=== PATIENT | female | born 1965 | race Caucasian/White ===

== ENCOUNTER 2024-06-27 06:29 | Emergency (ER) | payer BC ==
[2024-06-27 06:42] VITALS: BP 133/78; PULSE 94; RESP 20; TEMP 97.9; BMI 19.5
[2024-06-27 08:40] LABS: EOS % 1.1 % (0-4.5); HEMATOCRIT 42.5 % (32.4-45.2); HEMOGLOBIN 14.2 GM/dL (10.7-15.3); LYMPH % 15.9 % (8-40); MCH 30.4 pg (25.7-33.7); MCHC 33.5 g/dl (32.0-36.0); MEAN CELL VOLUME 90.7 fl (80-96); MEAN PLT VOLUME 6.9 fl (7.5-11.1); MONO % 5.7 % (3.8-10.2); NEUT % 76.3 % (42.8-82.8); PLATELET COUNT 363 10^3/uL (134-434); RBC 4.69 M/mm3 (3.60-5.2); RDW 13.9 % (11.6-15.6); WHITE BLOOD COUNT 11.3 K/mm3 (4.0-10.0)
[2024-06-27] MEDS ORDERED: KETOROLAC TROMETHAMINE 15 MG/ML VIAL ONE ×2 (08:50→11:43)
[2024-06-27 08:53] LABS: POTASSIUM 4.3 mmol/L (3.5-5.1)
[2024-06-27] MEDS: KETOROLAC TROMETHAMINE 15 MG/ML VIAL IVPUSH ONE (08:53)
[2024-06-27 08:55] LABS: ACTIVATED PTT 35.7 SECONDS (25.2-36.5); INR 0.92 (0.83-1.09); PROTHROMBIN TIME (PATIENT) 10.4 SEC (9.7-13.0)
[2024-06-27 08:56] LABS: ALBUMIN 3.9 g/dl (3.4-5.0); BLOOD UREA NITROGEN 10.5 mg/dL (7-18); CALCIUM 9.4 mg/dL (8.5-10.1); MAGNESIUM 2.2 mg/dL (1.8-2.4)
[2024-06-27 08:59] LABS: CREATININE 0.8 mg/dL (0.55-1.3)
[2024-06-27 09:01] LABS: BILIRUBIN,TOTAL 0.3 mg/dL (0.2-1); TOT PROT 7.1 g/dl (6.4-8.2)
[2024-06-27] MEDS ORDERED: ACETAMINOPHEN INJECTION 100 ML ONE (11:43)
[2024-06-27] MEDS: ACETAMINOPHEN 1000 MG/100 ML BAG IVPB ONE (11:47)
[2024-06-27] MEDS: KETOROLAC TROMETHAMINE 30 MG/1 ML VIAL IVPUSH ONE (11:47)
== END 2024-06-27 14:45 | disposition home or self-care (01) ==
LOC: JER 06:29
PROC: 3E033NZ Introduction of Analgesics, Hypnotics, Sedatives into Peripheral Vein, Percutaneous Approach (ICD-10-PCS; principal; 2024-06-27)
PROC: 3E0333Z Introduction of Anti-inflammatory into Peripheral Vein, Percutaneous Approach (ICD-10-PCS; 2024-06-27)
PROC: 3E0333Z Introduction of Anti-inflammatory into Peripheral Vein, Percutaneous Approach (ICD-10-PCS; 2024-06-27)
DX: R22.0 Localized swelling, mass and lump, head (principal)
CPT/HCPCS: 36415; 70491-TC; 80053; 83735; 85025; 85610; 85730; 99284-25; J0131